=== PATIENT | female | born 1990 ===

== ENCOUNTER 2018-06-27 08:17 | Emergency (ER) | payer OTHER ==
--- NOTE | 2018-06-27 08:55 | ED ---
Asthma - HPI Summary HPI Summary: Pt presents w/ URI sx and asthma exacerbation x 3 days. This started a sneezing , nasal congestion and progressed into chest congestoin w/ cough (worse at night ). Her head sx are improving but her chest has gotten tight since - cough when it occurs is dry. She developed a fever this morning but better w/ ibuprofen. Denies N/V/D, ab pain, chest pain, SOB but has difficulty getting a deep breath as chest is tight. H/o asthma w/ exacerbation when she gets a URI (this feels similar). She can usually improve these sx w/ albuterol HFA but unfortunately does not have one at home at this time. Additionally, she reports a history of allergies. They have a hypoallergenic pet at the house however they recently rescued a "moderate" and unsure if this animal is contributing to some of her symptoms as well. - History of Current Complaint Chief Complaint: UCRespiratory Stated Complaint: SOB ASTHMA Time Seen by Provider: 06/27/18 08:41 Hx Obtained From: Patient, Family/[employer] - male partner Hx Last Menstrual Period: 06/18/18 Pain Intensity: 6 - Allergy/Home Medications Allergies/Adverse Reactions: Allergies Allergy/AdvReac Type Severity Reaction Status Date / Time dog dander Allergy Difficulty Verified 06/27/18 08:36 Breathing Home Medications: Home Medications Dm/Acetaminophen/Doxylamine [Night Cold-Flu Relief Liq Gel] 1 tab PO ONCE PRN [History Confirmed 06/27/18] Ibuprofen 400 mg PO ONCE PRN 06/27/18 [History Confirmed 06/27/18] PMH/Surg Hx/FS Hx/Imm Hx Previously Healthy: Yes Respiratory History: Reports: Hx Asthma - as a child but has exacerbations as an adult w/ URI's, Hx Seasonal Allergies Infectious Disease History: No Infectious Disease History: Denies: Traveled Outside the [place] in Last 30 Days - Social History Lives: With Family Alcohol Use: Occasionally Substance Use Type: Reports: Marijuana Hx Tobacco Use: Yes - not currently Smoking Status (MU): Former Smoker Review of Systems Positive: Fever, Fatigue - feels wiped out. Negative: Chills Eyes: Negative Positive: Nasal Discharge. Negative: Sore Throat, Ear Ache Cardiovascular: Negative Negative: Palpitations, Chest Pain Respiratory: Other - wheezing at times Positive: Cough. Negative: Shortness Of Breath Gastrointestinal: Negative Positive: no symptoms reported Musculoskeletal: Negative Skin: Negative Negative: Rash Neurological: Negative Negative: Headache Psychological: Normal All Other Systems Reviewed And Are Negative: Yes Physical Exam Triage Information Reviewed: Yes Vital Signs On Initial Exam: Initial Vitals Temp Pulse Resp BP Pulse Ox 99.3 F 107 22 115/85 95 06/27/18 08:27 06/27/18 08:27 06/27/18 08:06/27/18 08:06/27/18 08:27 Vital Signs Reviewed: Yes Appearance: Positive: Well-Appearing - appears mildly fatigued but in good spirits and energetic to mobilize w/o difficulty, No Pain Distress, Well- Nourished Skin: Positive: Warm, Skin Color Reflects Adequate Perfusion, Dry - no rash Head/Face: Positive: Normal Head/Face Inspection Eyes: Positive: Normal, EOMI, Conjunctiva Clear. Negative: Conjunctiva Inflammed, Discharge ENT: Positive: Hearing grossly normal, Pharynx normal - mild cobblestoning - pink mucosa; scalloped tongue; mucosa somewhat dry, Nasal congestion - mild - no edema. Negative: TMs normal - occluded by black cerumen - since pt reports no pain and tragus as well as mastoid are nontender to palpation, lavage is not imperative if today. Dental: Negative: Abscess @ Neck: Positive: Supple, Nontender, No Lymphadenopathy Respiratory/Lung Sounds: Positive: Breath Sounds Present, Wheezes - very mild - heard best in lower airways along posterior back. Negative: Decreased Breath Sounds, Rales, Rhonchi, Subcutaneous Emphysema, Stridor, Tracheal Deviation, Unable to speak in full sentences, Fatigue Cardiovascular: Positive: Normal, RRR, S1, S2. Negative: Murmur, Rub Abdomen Description: Positive: Nontender, No Organomegaly, Soft Bowel Sounds: Positive: Present Musculoskeletal: Positive: Normal, Strength/ROM Intact Neurological: Positive: Normal, Sensory/Motor Intact, Alert, Oriented to Person Place, Time, CN Intact II-III Psychiatric: Positive: Normal Diagnostics - Vital Signs Vital Signs Temp Pulse Resp BP Pulse Ox 06/27/18 08:27 99.3 F 107 22 115/85 95 - Laboratory Lab Statement: Any lab studies that have been ordered have been reviewed, and results considered in the medical decision making process. Asthma Course/Dx - Course Course Of Treatment: Explaine if worse, may benefit from CXR but no fever, production of cough nor rhales heard on exam and pt has h/o asthma so CXR not ordered today. Pt and partner agree to f/u if sx persist and go to ED if worse - Diagnoses Provider Diagnoses: URI with cough and congestion, Asthma exacerbation Discharge - Sign-Out/Discharge Documenting (check all that apply): Patient Departure All imaging exams completed and their final reports reviewed: No Studies - Discharge Plan Condition: Stable Disposition: HOME Prescriptions: Albuterol HFA INHALER* [Ventolin HFA Inhaler*] 1 puff INH Q6H PRN #1 mdi PRN Reason: Wheezing Patient Education Materials: Asthma (ED), Upper Respiratory Infection (ED) Referrals: [facility] [Outside] Additional Instructions: You appear to have a viral URI exacerbating your asthma. Try the following along with your albuterol inhaler to improve your symptoms: Nasal wash (netti pot or saline spray) & salt water throat gargles 2 x day Drink you body weight in ounces of water every day Sleep 8+ hours per night Avoid Dairy and sugar Hot herbal/decaf tea with lemon & honey Chicken broth (preferably organic, free range chicken) Humidifier in house, but especially near bed at night Keep home temperature at 68F or less to reduce dryness Use cough drops/throat lozenges Try a facial steam Avoid smoke, candles, perfumes, colognes, scented soaps/detergents , air fresheners and cleaning chemicals as these can cause airway irritation and trigger coughing Start Vitamin D3 5000iu and Vitamin C 1000mg every day x winter months Additionally, you may try an antihistamine for sneezing, nasal congestion, etc such as Zyrtec. Take are directed on bottle. *If you develop difficulty breathing, shortness of breath, chest pain, fatigue, high fever, productive cough, go to the ED - Billing Disposition and Condition Condition: STABLE Disposition: Home
== END 2018-06-27 09:15 | disposition home or self-care (01) ==
LOC: UCEAST 08:17
DX: J06.9 Acute upper respiratory infection, unspecified (principal); R05 Cough; R09.81 Nasal congestion; J45.901 Unspecified asthma with (acute) exacerbation; Z87.891 Personal history of nicotine dependence
CPT/HCPCS: 99202; G0463